=== PATIENT | female | born 1980 ===

== ENCOUNTER 2021-09-26 09:28 | Day surgery (SDC) | payer OTHER ==
[~2021-09-26] VITALS: Ht 167.6 cm; Wt 140.6 kg
[~2021-09-26 09:28] MED LIST: MORGIDOX100 MG PO; NAPR500T14 PO
== END 2021-09-26 18:00 | disposition home or self-care (01) ==
LOC: CIR.AMB 09:28
PROVIDERS: ATTEND Obstetrics & Gynecology
DX: N85.02 Endometrial intraepithelial neoplasia [EIN] (principal); J45.909 Unspecified asthma, uncomplicated; Z86.16 Personal history of COVID-19; Z91.013 Allergy to seafood; E66.01 Morbid (severe) obesity due to excess calories; Z20.822 Contact with and (suspected) exposure to COVID-19

== ENCOUNTER 2021-12-03 11:45 | Inpatient (IN) | payer OTHER ==
[~2021-12-03] VITALS: Ht 167.6 cm; Wt 142.9 kg
[2021-12-06] MEDS ORDERED: NAPR500T14 PO (09:13)
[2021-12-06] MEDS ORDERED: Tylenol #3 PO (09:13)
== END 2021-12-06 12:47 | disposition home or self-care (01) | DRG 743 ==
LOC: O/R 12-05 09:22 → SURG 12-05 11:45
PROVIDERS: ADMIT Obstetrics & Gynecology; ATTEND Obstetrics & Gynecology
PROC: 0UT7FZZ Resection of Bilateral Fallopian Tubes, Via Natural or Artificial Opening With Percutaneous Endoscopic Assistance (ICD-10-PCS; 2021-12-05)
PROC: 0TJB8ZZ Inspection of Bladder, Via Natural or Artificial Opening Endoscopic (ICD-10-PCS; 2021-12-05)
PROC: 0UT9FZZ Resection of Uterus, Via Natural or Artificial Opening With Percutaneous Endoscopic Assistance (ICD-10-PCS; principal; 2021-12-05 18:00)
DX: N85.02 Endometrial intraepithelial neoplasia [EIN] (principal); N72 Inflammatory disease of cervix uteri; Z20.822 Contact with and (suspected) exposure to COVID-19